=== PATIENT | male | born 1985 | race Caucasian/White ===

== ENCOUNTER → 2017-08-29 | Outpatient (CLI) | payer BC, OTHER | END | disposition home or self-care (01) | LOC: C.LAB 14:05 | PROVIDERS: ATTEND Physician Assistant | DX: N46.9 Male infertility, unspecified (principal) ==

== ENCOUNTER → 2017-11-26 | Outpatient (CLI) | payer BC | END | disposition home or self-care (01) | LOC: C.LAB 15:50 | PROVIDERS: ATTEND Obstetrics & Gynecology | DX: Z31.41 Encounter for fertility testing (principal) ==

== ENCOUNTER 2024-11-17 19:00 | Inpatient (IN) ==
[2024-11-17] MEDS ORDERED: ACETAMINOPHEN 325 MG TAB PO PRN (23:36)
[2024-11-17] MEDS ORDERED: NITROGLYCERIN SL 0.4 MG/TAB TAB SL PRN (23:36)
[2024-11-17] MEDS ORDERED: LORazepam 0.5 MG TAB PO PRN (23:38)
[2024-11-17] MEDS ORDERED: PROMETHAZINE 6.25 MG/50.25 ML BAG IV PRN (23:38)
[2024-11-17] MEDS ORDERED: MoRPHine SULFATE 4 MG/ML 1 ML CARP\\VIAL IV PRN (23:38)
[2024-11-18 00:31] LABS: Magnesium 2.2 mg/dl (1.7-2.4)
[2024-11-18 00:40] LABS: ANTI-Xa, UFH(UnfractionatedHep 0.18 IU/ml (0.3-0.7)
[2024-11-18 00:44] LABS: Partial Thromboplastin Time 32 Seconds (21-31)
[2024-11-18] MEDS: LACTATED RINGER'S 1,000 ML IV ONE (01:45)
[2024-11-18] MEDS: Heparin IV Adult Wt-Based Standard *NO* INITIAL Bolus Protocol IV STA (01:46)
[2024-11-18] MEDS: HEPARIN 25000 UNIT/500 ML D5W 25,000 UNITS/500 ML BAG IV SCH (01:48)
[2024-11-18] MEDS: HEPARIN SOD (PORCINE) 1000 UNIT/ML IV ONE (01:50)
--- NOTE | 2024-11-18 03:14 | History & Physical Report ---
Date of Service November 18, 2024 Assessment & Plan (1) NSTEMI (non-ST elevated myocardial infarction): Plan: Assessment and plan below following discussion of case with ED provider and reviewing patient history/pertinent normal/abnormal diagnostic test results. NSTEMI, patient currently chest pain-free Hyperlipidemia on statin Rx Hyperglycemia rule out DM Admit to PCU Continue aspirin and statin Rx for CAD prevention Continue IV heparin initiated at [facility] ER Initiate beta-yary Trend troponin TTE, Cardiology consult re: NSTEMI ([facility] ED provider already in touch with Dr. Del Cid as per [facility] transfer center.) N.p.o. in anticipation of diagnostic cardiac catheterization in a.m. Update lipid profile Check hemoglobin A1c DVT prophylaxis. IV heparin Full code Text document was generated using [employer] voice recognition software. It may contain grammatical or spelling errors. Kindly contact undersigned for clarification of any documentation item in question. Admission and Anticipated Discharge Date Admission Date: November 17, 2024 History of Present Illness Chief Complaint: Chest pain Primary Care Provider: Dr. Torres History obtained from patient and records. Medical history significant for hyperlipidemia. Patient not feeling well yesterday morning. At work behind the desk yesterday around noontime, patient experienced substernal discomfort going to his neck and scapula. Some SOB without cough symptoms. Admits to some exertional SOB over the last few weeks. Patient felt very ill. Patient consulted urgent care center. Abnormal EKG noted at urgent care center. Patient directed to [facility] ER. Initial EKG showed J-point elevation in V5 and V6 with inverted T waves V1-V3 as per ED provider report. Initial blood work results at [facility] (11/17) Hemoglobin, 16 hematocrit 48, WBC 12, platelets 204 Serum sodium 141, potassium 4.1, chloride 104, CO2 24, BUN 16, creatinine 1, glucose 110 Chest x-ray without abnormalities D-dimer was within normal limits. Abnormal troponin x 2 noted : 328 followed by 380 Bedside echo done by ED provider showed normal global function without evidence of right heart strain or pericardial effusion as per report. Aspirin and IV heparin administered at [facility] ER. Patient transferred to [facility] for interventional cardiology services for for NSTEMI after discussing with specialist. Patient currently comfortable upon arrival at PCU unit. 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 Allergies Allergy/AdvReac Type Severity Reaction Status Date / Time No Known Allergies Allergy Unverified 11/17/24 23:36 Home Medications Medication Instructions Recorded Confirmed Type atorvastatin 20 mg tablet 20 mg PO DAILY 11/17/24 11/17/24 History Past Med/Surg History Problem List (Updated 11/18/24 @ 05:33 by Azam Escobedo MD) NSTEMI (non-ST elevated myocardial infarction) Social History Smoking Status: Never smoker Hx Alcohol Use: Yes Hx Substance Use: Yes Substance Use Type Other:: nicotine pouches Preferred Language: Persian Communication Ability: Effective Rate Clerk Required: No Beliefs That Will Affect Care: None Current Living Situation: Spouse Other Information That Helps Us Care for You: No Feels Safe at Home: Yes Safety Concerns: Feels Safe At This Time Assistive Devices: None Review of Systems Review of Systems: As per HPI, all other systems reviewed and negative Physical Exam Physical Exam: GENERAL: Comfortable, pleasant, slightly anxious, no respiratory distress SKIN: Normal color, warm HEENT: [place] palpebral conjunctivae, no ptosis, moist buccal mucosa NECK : Supple, no tenderness CHEST : CTA, no tenderness HEART : RRR, no obvious murmurs ABDOMEN: no distention, nontender EXTREMITIES : No LE swelling/tenderness, palpable pulses, no other conspicuous deformities noted NEUROLOGIC : Coherent, no facial asymmetry, no other gross focality Results & Data Results & Data Laboratory Results Laboratory Results APTT 32 Seconds (21-31) H 11/17/24 23:47 PTT Ratio 1.2 11/17/24 23:47 Heparin Anti-Xa, Unfract 0.18 IU/ml (0.3-0.7) L 11/17/24 23:47 Magnesium 2.2 mg/dl (1.7-2.4) 11/17/24 23:47 Troponin I High Sens 4680.5 pg/ml (0-20) H* 11/17/24 23:47 Diagnostic Findings EKG as per my interpretation ([facility], 11/17, 1424) : Rate 55, sinus bradycardia, incomplete RBBB J-point elevation V4-V6, T wave abnormalities inferior leads Code Status & VTE Plan VTE Prophylaxis Plan VTE Prophylaxis will be ordered: Yes
[2024-11-18] MEDS: METOPROLOL SUCC 25MG EXT REL TAB PO SCH (03:34)
[2024-11-18 07:35] VITALS: TEMP 98.1
[2024-11-18] MEDS ORDERED: MoRPHine SULFATE 4 MG/ML 1 ML CARP\\VIAL IV PRN (07:35)
[2024-11-18 07:47] LABS: Hematocrit (blood only) 43.6 % (42.0-52.0); Hemoglobin 14.6 g/dl (14.0-18.0); Immature Granulocytes # (auto) 0.03 K/uL (0.01-0.20); Immature Granulocytes % (auto) 0.3 %; Mean Corpuscular Hemoglobin 30.2 pg (25.0-34.0); Mean Corpuscular Volume 90.3 fL (80.0-100.0); Platelet Count 189 K/uL (130-400); RDW Standard Deviation 44.1 fL (36.4-46.3); Red Blood Count 4.83 M/uL (4.70-6.10); White Blood Count 9.24 K/ul (4.8-10.8)
[2024-11-18 08:14] LABS: Anion Gap 6.0 (3-11); Blood Urea Nitrogen 14.0 mg/dl (6-23); Calcium 8.6 mg/dl (8.6-10.3); Carbon Dioxide 30.0 mmol/L (21-32); Chloride 104.0 mmol/L (98-107); Cholesterol 211.0 mg/dl (0-200); Creatinine Clr Calc Pharmacy 121.0 ml/min; Glucose 99.0 mg/dl (70-99(Fasting)); HDL Cholesterol 37.0 mg/dl; Potassium 3.8 mmol/L (3.5-5.1); Sodium 140.0 mmol/L (136-145); Triglycerides 162.0 mg/dl (0-150)
--- NOTE | 2024-11-18 08:27 | XCELERA ---
[id number]
[2024-11-18 08:30] LABS: ANTI-Xa, UFH(UnfractionatedHep 0.12 IU/ml (0.3-0.7)
[2024-11-18 08:32] LABS: Hemoglobin A1C 5.5 % (4.5-5.6)
[2024-11-18] MEDS: ASPIRIN 81 MG ECTAB PO SCH (08:46)
[2024-11-18] MEDS: ATORVASTATIN 20 MG TAB PO SCH (08:47)
[2024-11-18 09:15] VITALS: RESP 18
--- NOTE | 2024-11-18 09:44 | Pre Anesthesia Assessment ---
Date of Service November 18, 2024 Pre Sedation Assessment Vital Signs Temp Pulse Pulse Resp BP Pulse Ox O2 Del Method 11/18/24 09:09 66 18 135/95 99 Room Air 11/18/24 07:34 98.1 F 56 L 17 122/92 100 Room Air 11/18/24 04:17 98.2 F 52 L 21 111/70 99 Room Air 11/17/24 23:50 70 11/17/24 23:36 98.2 F 71 16 143/92 H 98 Room Air Cardiovascular + regular rate Respiratory + respiratory effort normal Pre-Sedation Airway Assessment Smoking Status: Never smoker Hx Sleep Apnea: No Hx Difficult Intubation: No Short, Thick Neck: Yes Thyromental Distance: > or= 3.5 Finger Breadths Oral Cavity: + Capped Teeth Mallampati Class: III ASA: ASA2 NPO Status Date of Last Intake of Fluids: 11/18/24 Last Oral Intake of Fluids Comment: sip with meds Date of Last Intake of Solid Food: 11/17/24 Time of Last Intake of Solid Foods: 18:00 Procedure Planning Contraindications for Sedation: none Current Medications Reviewed: Yes Notes The planned sedation has been discussed with the patient. Informed Consent was obtained. I have identified the patient, determined the appropriateness of sedation and have assessed the patient immediately prior to the procedure. All medicine(s) and interventions are by my order.
[2024-11-18] MEDS: niCARdipine 2,000 MCG/20 ML SYR ONE (10:00)
[2024-11-18] MEDS: NITROGLYCERIN/D5W 100MCG/ML 20ML SYR ONE (10:00)
[2024-11-18] MEDS: LIDOCAINE 1% LOCAL 20 ML VIAL ONE (10:03)
[2024-11-18] MEDS: MIDAZOLAM HCL 1 MG/ML 2ML VIAL ONE ×2 (10:25→10:26)
[2024-11-18] MEDS: HEPARIN (PORCINE) 1000 UNIT/ML 10 ML (CATH LAB USE ONLY) ONE (10:25)
[2024-11-18] MEDS: OPTIRAY 350 ONE (10:29)
--- NOTE | 2024-11-18 10:34 | Post Anesthesia Assessment ---
Date of Service November 18, 2024 Post Sedation Assessment Vital Signs Temp Pulse Pulse Resp BP Pulse Ox O2 Del Method 11/18/24 09:09 66 18 135/95 99 Room Air 11/18/24 07:34 98.1 F 56 L 17 122/92 100 Room Air 11/18/24 04:17 98.2 F 52 L 21 111/70 99 Room Air 11/17/24 23:50 70 11/17/24 23:36 98.2 F 71 16 143/92 H 98 Room Air Recovery Score Activity: Moves 4 extremities Respiration: Deep Breath/Cough Circulation: +/-20% PreAnes Value Consciousness: Fully Awake Oxygen Saturation: O2 needed for >90% Discharge Sedation Level of Care: Fast Track Phase II
--- NOTE | 2024-11-18 10:51 | Cardiac Catheterization ---
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 Cardiac Status Clinical evaluation leading to the procedure CAD Presenation: Non STEMI Anginal Classification: CCS IV Diagnostic Physicians Name: Chad Del Cid MD Closure Device Recommendations: Medical Therapy and/or Counseling Cardiac Cath Procedure Full Procedure Date November 18, 2024 Pre-Procedure Diagnosis Pre-Procedure Diagnosis: Non STEMI AUC Score AUC Score: 7 Post-Procedure Diagnosis Post-Procedure Diagnosis: Normal Coronary Arteries and Normal Intracardiac Pressures Procedure(s) Performed Procedure(s) Performed: Coronary Angiography and Left Heart Cath Picker Operator Chad Del Cid MD Operations Professional(s) Maureen Estimated Blood Loss Estimated Blood Loss: 5 Medication(s) Medication(s): Fentanyl, Lidocaine 1%, Nicardipine, Nitroglycerin and Versed Summary of Findings Indication: NSTEMI Access: 6 Fr slender right radial artery Catheters: [place] Findings: LM -large caliber, no significant disease LAD -large caliber, no significant disease. Distal vessel wraps around apex. Gives off to moderate caliber diagonals without significant disease. Circumflex -medium caliber angiographically normal. Small OM1 and medium OM 2 without significant disease. RCA -medium caliber, angiographically normal. Medium RPDA angulated, tortuous in the mid segment but no significant disease. LVEDP -12 Arterial Closure: TR band Summary: 1. Angiographically normal coronary arteries 2. Normal intracardiac filling pressure Recommendations: No acute or high risk CAD to explain patient's symptoms. Very low suspicion for eccentric plaque or transient obstructive disease. Supportive care for [place], possible viral myocarditis Hemodynamics Rest Ao:: 114/83/116 Final Ao: 113/80/96 LV: 114/12 Recommendations Recommendations: Medical Therapy and/or Counseling Radiation Exposure (mGy) 736 Contrast (mls) 65 Anesthesia Moderate 9140-8558 Procedural Complication(s) None Disposition Tower Hoist Operator Holding/Recovery I attest to the content of the Intraoperative Record and any orders documented therein. Any exceptions are noted below. [facility] Card Cath Procedure Codes Cardiac Catheterization Procedure 1: Cardiovascular Cath Procedures: 52819 Coronaries and LHC (+/-LV) Moderate Sedation Procedure 1: Sedation/Anesthesia: 57981 Mod Sedation by the same physician;Init15 Min Child Age 5 & Up PG Care Time/CCT Total # of Minutes Spent Total Time Spent with Patient: Total time spent is greater than 50% in coordination of care (as documented) at patient's floor/unit and/or counseling patient:
[2024-11-18 11:01] VITALS: O2SAT 98
--- NOTE | 2024-11-18 11:11 | Cardiology Consultation ---
Date of Consultation November 18, 2024 Assessment & Plan (1) Elevated troponin: 2. Preserved biventricular function 3. Dyslipidemia Presentation consistent with [place]. Coronary arteries angiographically normal and very low suspicion for eccentric plaque or transient obstructive disease. No signs of RV dysfunction or strain and D-dimer was negative. Had viral symptoms last week and feel picture most consistent with viral myocarditis. At present chest pain-free, hemodynamically stable and electrically stable on telemetry. Plan going forward for supportive care. Consider ESR/CRP but no need for additional further cardiac testing at this time Can discontinue heparin infusion. Reasonable to continue current aspirin, low-dose Toprol-XL on discharge. Likely discontinue on follow-up. Continue to monitor on telemetry while admitted On discharge limit strenuous exercise for next month From a cardiac standpoint okay with discharge later today or tomorrow when TR band removed. History of Present Illness Attending Physician: Arias Figueroa MD History of Present Illness Mr. Sewell is a very pleasant 39-year-old man seen today in the setting of NSTEMI. Healthy at baseline, physically active. Carries diagnosis of dyslipidemia and is on atorvastatin otherwise no medical problems. Yesterday at work while sitting at his desk developed substernal chest pain which radiated to his back. Symptoms lasted for about 2 to 3 hours before presenting to [facility] ED. In ED symptoms gradually went away. ECG showed sinus rhythm with J-point elevation and subtle concave up ST elevation in 1 and lateral leads. T wave inversions inferiorly. HS TropI initially in the 300s, up to 4000 on arrival here before trending down. Electrically stable on telemetry. D-dimer normal. Has remained chest pain-free since arrival here. Echo today shows biventricular size and function with no regional wall motion abnormalities. Underwent cardiac catheterization today which showed angiographically normal coronary arteries. Normal LVEDP. Allergies Allergy/AdvReac Type Severity Reaction Status Date / Time No Known Allergies Allergy Unverified 11/17/24 23:36 Home Medications Medication Instructions Recorded Confirmed Type atorvastatin 20 mg tablet 20 mg PO DAILY 11/17/24 11/17/24 History aspirin 81 mg tablet,delayed 81 mg PO DAILY #30 tabs 11/18/24 Rx release metoprolol succinate 25 mg 25 mg PO QAM #30 tabs 11/18/24 Rx tablet,extended release 24 hr Patient History Social History Smoking Status: Never smoker Hx Alcohol Use: Yes Hx Substance Use: No Preferred Language: Hungarian Communication Ability: Unable Doctor Of Podiatric Medicine Required: No Beliefs That Will Affect Care: None Current Living Situation: Spouse Other Information That Helps Us Care for You: No Feels Safe at Home: Yes Safety Concerns: Feels Safe At This Time Assistive Devices: None Review of Systems Review of Systems: All systems reviewed & are unremarkable except as noted in HPI & below Physical Exam Physical Exam: General: Comfortable HEENT: Sclerae anicteric Lungs: Clear to auscultation bilaterally, no crackles or wheezes Cardiac: Regular rate and rhythm, no murmurs. Vascular: 2+ radial, DP pulses. No bruits Abdomen: Soft, nontender Extremities: Well perfused, no peripheral edema Neuro: Nonfocal Psych: Alert orient x3, normal affect and mood Results & Data Vital Signs (Past 12 Hours) Vital Signs Temp Pulse Pulse Resp BP Pulse Ox O2 Del Method 11/18/24 10:35 55 L 18 108/81 97 Room Air 11/18/24 09:09 66 18 135/95 99 Room Air 11/18/24 07:34 98.1 F 56 L 17 122/92 100 Room Air 11/18/24 04:17 98.2 F 52 L 21 111/70 99 Room Air 11/17/24 23:50 70 11/17/24 23:36 98.2 F 71 16 143/92 H 98 Room Air PG Care Time/CCT Total # of Minutes Spent Total Time Spent with Patient: Total time spent is greater than 50% in coordination of care (as documented) at patient's floor/unit and/or counseling patient: Coding Level of Care Code 73194 IN/OBS CONSULT LVL 4,60M Diagnoses Elevated troponin R79.89
[2024-11-18 11:22] VITALS: BP 103/73
--- NOTE | 2024-11-18 11:47 | Electrocardiogram Report ---
Test Reason : Blood Pressure : */* mmHG Vent. Rate : 48 BPM Atrial Rate : 48 BPM P-R Int : 168 ms QRS Dur : 92 ms QT Int : 464 ms P-R-T Axes : 55 -10 0 degrees QTcB Int : [address] elevation, consider early repolarization, pericarditis, or injury Abnormal ECG No previous ECGs available Confirmed by Teofilo Esquivel ([id number]) on 11/18/2024 11:46:59 AM Referred By: Charles Hewitt Confirmed By: Teofilo Esquivel
--- NOTE | 2024-11-18 13:25 | Discharge Summary ---
Discharge Summary Date of Service November 18, 2024 Principal Dx & Hospital Course #1 = Principal Diagnosis (1) NSTEMI (non-ST elevated myocardial infarction): Assessment and plan below following discussion of case with ED provider and reviewing patient history/pertinent normal/abnormal diagnostic test results. NSTEMI, patient currently chest pain-free Hyperlipidemia on statin Rx Hyperglycemia rule out DM Admit to PCU Continue aspirin and statin Rx for CAD prevention Continue IV heparin initiated at [facility] ER Initiate beta-yary Trend troponin TTE, Cardiology consult re: NSTEMI ([facility] ED provider already in touch with Dr. Del Cid as per [facility] transfer center.) N.p.o. in anticipation of diagnostic cardiac catheterization in a.m. Update lipid profile Check hemoglobin A1c DVT prophylaxis. IV heparin Full code Text document was generated using [employer] voice recognition software. It may contain grammatical or spelling errors. Kindly contact undersigned for clarification of any documentation item in question. Notes For Next Care Provider 39 yo male with pmhx of HLD who presented for atypical chest pain and troponin elevation. Started on heparin, admitted to medicine for cardiac catheterization. On medicine, cardiac catheterization performed without a culprit lesion or significant CAD. Suspect myocarditis. On 11/18/2024 patient medically stable for discharge home. To do: [ ] f/u with cardiology to consider stopping metoprolol, aspirin after discharge Medication Changes From Visit -see below Admission HPI Per Admitting Provider History obtained from patient and records. Medical history significant for hyperlipidemia. Patient not feeling well yesterday morning. At work behind the desk yesterday around noontime, patient experienced substernal discomfort going to his neck and scapula. Some SOB without cough symptoms. Admits to some exertional SOB over the last few weeks. Patient felt very ill. Patient consulted urgent care center. Abnormal EKG noted at urgent care center. Patient directed to [facility] ER. Initial EKG showed J-point elevation in V5 and V6 with inverted T waves V1-V3 as per ED provider report. Initial blood work results at [facility] (11/17) Hemoglobin, 16 hematocrit 48, WBC 12, platelets 204 Serum sodium 141, potassium 4.1, chloride 104, CO2 24, BUN 16, creatinine 1, glucose 110 Chest x-ray without abnormalities D-dimer was within normal limits. Abnormal troponin x 2 noted : 328 followed by 380 Bedside echo done by ED provider showed normal global function without evidence of right heart strain or pericardial effusion as per report. Aspirin and IV heparin administered at [facility] ER. Patient transferred to [facility] for interventional cardiology services for for NSTEMI after discussing with specialist. Patient currently comfortable upon arrival at PCU unit. 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 External ears normal. No rhinorrhea. Moist mucous membranes. Neck: Supple, full range of motion, no observable masses, No meningeal sign. Lungs: No Respiratory distress. CV: RRR, no edema. Abdomen: Soft, nondistended, No rebound tenderness. MSK: No joint swelling, no redness. Wrist band noted on right wrist s/p cath Skin: No rashes, petechiae, lesions. Normal color per patient. Neuro: Normal Gait, Grossly intact. Psych: Appropriate for situation. Updated Medication List Medication Instructions Recorded Confirmed Type atorvastatin 20 mg tablet 20 mg PO DAILY 11/17/24 11/17/24 History aspirin 81 mg tablet,delayed 81 mg PO DAILY #30 tabs 11/18/24 Rx release metoprolol succinate 25 mg 25 mg PO QAM #30 tabs 11/18/24 Rx tablet,extended release 24 hr Hospital Stay Data Consultations 11/17/24 23:36 Consult Cardiology Routine Procedures Performed Operation Date: 11/18/24 08:30 Actual Procedures p Cath, Left with Cors and Vent - Chad Del Cid MD s Cineradiography w/Routine Exam - Chad Del Cid MD Diagnostic Imagining Performed 11/18/24 08:29 CL Cath Imgs for PACS use only Routine Pending Results Patient Have Any Pending Studies at Discharge: No Discharge Instructions Given to Patient (Per Discharging Provider) 1. Please follow up with PCP and cardiology. 2. Please continue medications as prescribed. 3. Limit strenuous activity for 1 month. Total Time Total Time Spent Total Time Spent (In Minutes): I spent a total of 35 minutes in direct patient care, including [id number] time with the patient and/or family, reviewing medical records, ordering and reviewing diagnostic tests, and coordinating care with other healthcare providers. This time includes: history taking, physical examination, medical decision making, counseling, ECG interpretation, imaging interpretation, lab interpretation, orders, and education, excluding time spent in the performance of separately billed services.
[2024-11-18 14:09] VITALS: PULSE 65
--- NOTE | 2024-11-20 13:05 | Coding Query ---
CODING QUERY To promote full compliance with coding requirements relating to patient care, provider participation is requested in all cases of laminating machine tender uncertainty. Please assist us with the question(s) below: Coding Question(s): The patient is diagnosed with an NSTEMI throughout the chart, however in the discharge summary there is the following documentation, "C ardiac catheterization performed without a culprit lesion or significant CAD. Suspect myocarditis." Could you please clarify the status of the NSTEMI and most likely reason for the patient's admission? NSTEMI Diagnosed and POA ( ) Ruled out ( ) Other, please specify ( ) The most likely cause for the patient's admission was NSTEMI ( ) Suspected myocarditis ( ) Substernal chest pain, unknown cause (x ) Other, please specify ( ) Physician's Response(s): Thank you Billie Paulino Principal Diagnosis: "that condition established after study, to be chiefly responsible for occasioning the admission of the patient to the hospital for care." Co-Existing Principal Diagnosis: "when two or more diagnoses equally meet the criteria for principal diagnosis as determined by the circumstances of admission, diagnostic work up, and/or therapy provided, and the Alphabetic Index, Tabular List, or another coding guideline does not provide sequencing direction, any one of the diagnoses may be sequenced first." "When the physician has documented what appears to be a current diagnosis in the body of the record, but has not included the diagnosis in the final diagnostic statement, the physician should be asked whether the diagnosis should be added." (Source Coding [facility] 2 QTR90. p3-4) JOAQUINA
== END 2024-11-18 14:25 | disposition home or self-care (01) | DRG 282 ==
LOC: 2E 23:26 → SUATTDRO 23:26